=== PATIENT | female | born 1990 | race Caucasian/White ===

== ENCOUNTER 2021-03-29 22:28 | Emergency (ER) | payer BC, SELFPAY ==
--- NOTE | ~2021-03-29 | CT_ITS ---
EXAMINATION: CTA chest PE protocol DATE: 03/30/2021 00:22 INDICATION: COVID-19 positive. Tachycardia. TECHNIQUE: Computed tomography angiography (CTA) of the chest was performed with 100 mL Omnipaque-350 intravenous contrast timed to evaluate the pulmonary arteries. Coronal maximum intensity projection 3D-reconstructions were created by the technologist. Automated exposure control and iterative reconst ruction technique were employed. The dose-length product was 190.35 mGy-cm. COMPARISON: None. FINDINGS: There is mild atelectasis in right lower lobe. No pleural effusion. The heart size is to l. No pericardial effusion. There is no pulmonary embolus. There is mild thoracic spondylosis. IMPRESSION: 1. No pulmonary embolus. Reviewed, dictated and finalized at location A. ING MACHINE OPERATOR IMPRESSION: 1. No pulmonary embolus.
[2021-03-29 22:30] VITALS: BP 161/109; PULSE 154; RESP 22; TEMP 36.4; O2SAT 99
--- NOTE | 2021-03-29 22:45 | ED.URI ---
HPI - URI/Sore Throat General Chief Complaint: Upper Respiratory Infection Stated Complaint: constant cough x 30 min Time Seen by Provider: 03/29/21 22:39 Source: patient History of Present Illness HPI Narrative: Patient presents with cough. Reports she was diagnosed with Covid approximately 10 days ago around 10:00 tonight she had a worsening cough that has not subsided she was concerned so she came to the ER for evaluation she denies any shortness of breath or chest pains reports she cannot stop coughing she has any nausea vomiting or fevers Related Data Home Medications Medication Instructions Recorded Confirmed norethindrone 1 mg-ethinyl 1 tablet PO DAILY 03/13/19 02/17/21 estradiol 20 mcg (24)-iron 75 mg (4) tablet insulin detemir U-100 100 unit/mL 30 unit SUB-Q DAILY ml 03/05/20 02/17/21 (3 mL) subcutaneous pen antiarthritic combination no.2 900 mg PO 12/12/20 02/17/21 mg tablet cetirizine 10 mg capsule 10 mg PO DAILY 12/12/20 02/17/21 trazodone 50 mg tablet 50 mg PO DAILY tablet 12/12/20 02/17/21 desvenlafaxine succinate 50 mg 100 mg PO DAILY tablet 02/17/21 02/17/21 tablet,extended release 24 hr Allergies Allergy/AdvReac Type Severity Reaction Status Date / Time No Known Allergies Allergy Verified 03/29/21 22:33 Review of Systems Review of Systems: CONSTITUTIONAL: Denies fever, chills, or sweats. EYES: Denies visual changes, redness, or discharge. ENT: Denies rhinorrhea, congestion, sore throat, or otalgia. CARDIOVASCULAR: Denies chest pain, palpitations, or edema. RESPIRATORY: Denies dyspnea. GASTROINTESTINAL: Denies abdominal pain, nausea, vomiting, or diarrhea. GENITOURINARY: Denies dysuria or hematuria. SKIN: Denies rash or itching. MUSCULOSKELETAL: Denies back pain, joint pain, or myalgia. NEUROLOGIC: Denies headache, numbness, dizziness, or weakness. PSYCHIATRIC: Denies anxiety or depression. 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) History of ear surgery 07/11 - right ear ossiculoplasty History of eye surgery 03/11/20, laser for retinopathy History of placement of ear tubes [place] teeth extracted Family History Family History Father Diabetes mellitus Hypertension Bipolar depression Mother Depression Anxiety Sibling Diabetes mellitus Grandparent Alcoholism Hypertension Anxiety Depression Heart problem Cerebrovascular accident Thyroid disorder Grandparent Alcoholism Diabetes mellitus Anxiety Depression Social History Social History Smoking status: Never smoker Alcohol intake: current Substance use: never Exam Narrative: GENERAL: Well-appearing, well-nourished, coughing HEAD: Normocephalic, atraumatic. EYES: PERRLA and EOMI. ENT: Nares clear, no rhinorrhea or epistaxis. Mucous membranes moist. NECK: Supple. No masses. No JVD CHEST: Clear to auscultation. No respiratory distress. No wheezes rales or rhonchi HEART: Regular tachycardia No murmur heard. Normal peripheral pulses. ABDOMEN: Soft, nontender, nondistended, normal active bowel sounds. EXTREMITIES: Normal range of motion. No edema. SKIN: Warm, dry, no rash. NEURO: No focal deficits. Alert and oriented x3. PSYCH: Normal mood and affect. Course Reevaluation(s) Reevaluation #1: Pending CT results Date: 03/30/21 Time: 01:11 Reevaluation #2: Patient is feeling much improved results and plan reviewe
[2021-03-29 23:02] LABS: Alveolar/Arterial O2 Gradient 1.3 mmHg; Base Excess ABG 1.8 mEq/l (+/-2.0); Fractional Inspired Oxygen 21 %; HCO3 ABG 17.7 mEq/l (22.0-26.0); Oxygen Content ABG 18.5 %vol (16.0-22.0); Oxygen Saturation ABG 99.3 % (95.0-100.0); Oxyhemoglobin 98.4 % THb (90.0-100.0); PO2 ABG 132.9 mmHg (80.0-100.0); PO2 FiO2 Ratio Arterial Blood 6.33 %; Total Hemoglobin 13.2 g/dL (12.0-18.0)
[2021-03-29 23:07] LABS: Device ROOM AIR; Modified Allen's Test Pass; Site Drawn RIGHT RADIAL; pH ABG 7.751 (7.350-7.450)
[2021-03-29 23:18] VITALS: PULSE 117; RESP 30; O2SAT 100
[2021-03-29 23:22] VITALS: O2SAT 100
[2021-03-29 23:27] LABS: Basophils Absolute Auto 0.1 K/mm3 (0.0-0.1); Basophils Percent Auto 0.9 % (0.2-1.2); Eosinophils Absolute Auto 0.1 K/mm3 (0-0.3); Eosinophils Percent Auto 0.8 % (0-4.4); Hematocrit 37.4 % (37.0-47.0); Immature Granulocyte Absolute 0.01 K/mm3 (0.00-0.031); Immature Granulocyte Percent A 0.1 % (0-0.5); Lymphocytes Absolute Auto 3.05 K/mm3 (0.9-3.2); Lymphocytes Percent Auto 38.3 % (18.3-44.2); Mean Corpuscular HGB Conc 34.8 g/dl (32-36); Mean Corpuscular Hemoglobin 29.5 pg (26-34); Mean Platelet Volume 8.3 fl (7.4-10.4); Monocytes Absolute Auto 0.5 K/mm3 (0.1-0.6); Monocytes Percent Auto 5.9 % (2.6-8.5); Neutrophils Absolute Auto 4.3 K/mm3 (1.3-6.7); Platelet Count Result 462 k/mm3 (150-375); Red Cell Distribution Width 12.4 % (11.5-14.5)
[2021-03-29 23:44] LABS: Alanine Aminotransferase 29 U/L (4-35); Albumin Level 4.7 g/dL (3.5-5.1); Alkaline Phosphatase 69 U/L (38-126); Anion Gap 17 mmol/L (8-16); Aspartate Amino Transferase 35 U/L (14-36); Bilirubin,Total 0.6 mg/dL (0.2-1.3); Blood Urea Nitrogen 5 mg/dL (7-17); Calcium 9.6 mg/dL (8.4-10.2); Carbon Dioxide 15 mmol/L (22-30); Chloride 99 mmol/L (98-107); Estimated Glomerular Filt Rate > 60; Glucose 119 mg/dL (65-110); Sodium 131 mmol/L (137-145)
[2021-03-30] MEDS: BENZONATATE 100 MG CAPSULE PO (00:16)
[2021-03-30 00:42] VITALS: BP 123/84; PULSE 107; RESP 16; O2SAT 95
--- NOTE | 2021-03-30 01:05 | PC.NURSE ---
Pt c/o blood sugar in 70s. Pt given peanut butter crackers. Pt also c/o headache, states she normally takes Imitrex at home. EDP notified.
[2021-03-30] MEDS: SUMAtriptan SUCCINATE 25 MG TABLET PO (01:19)
== END 2021-03-30 03:03 | disposition home or self-care (01) ==
PROVIDERS: Emergency Provider Emergency Medicine
DX: U07.1 COVID-19 (principal); R05.9 Cough, unspecified; E10.319 Type 1 diabetes mellitus with unspecified diabetic retinopathy without macular edema; F98.8 Other specified behavioral and emotional disorders with onset usually occurring in childhood and adolescence; F31.9 Bipolar disorder, unspecified; Z79.4 Long term (current) use of insulin
CPT/HCPCS: 36415; 36600; 71275; 80053; 82805; 85025; 99284; A9270; Q9967